=== PATIENT | male | born 1955 | race Two or more races ===

== ENCOUNTER 2021-06-07 13:36 | Inpatient (IN) | payer OTHER ==
[2021-06-07] MEDS ORDERED: ONDANSETRON *ODT* 4 MG TABLET SL PRN (15:35)
[2021-06-07] MEDS ORDERED: MAGNESIUM CITRATE 300 ML BOTTLE PO PRN (15:35)
[2021-06-07] MEDS ORDERED: MAG HYDROX/AL HYDROX/SIMETH 30 ML UNIT-DOSE CUP PO PRN (15:35)
[2021-06-07] MEDS ORDERED: ACETAMINOPHEN 325 MG TABLET (FP) PO PRN (15:35)
[2021-06-07] MEDS ORDERED: BISMUTH SUBSALICYLATE 524 MG/30 ML PO PRN (15:35)
[2021-06-07] MEDS ORDERED: chlordiazePOXIDE HCL 25 MG CAPSULE PO PRN (15:35)
[2021-06-07] MEDS ORDERED: MAGNESIUM HYDROX 2400MG/30ML ORAL SUSPENSION 30 ML CUP PO PRN (15:35)
[2021-06-07] MEDS ORDERED: MENTHOL/PHENOL 1 EACH UD MM PRN (15:35)
[2021-06-07 15:49] VITALS: BMI 27.8
[2021-06-07] MEDS: hydrOXYzine PAMOATE 25 MG CAPSULE (FP) PO SCH ×2 (17:45→22:22)
[2021-06-07] MEDS: chlordiazePOXIDE HCL 25 MG CAPSULE PO SCH ×2 (17:45→22:22)
[2021-06-07] MEDS: THIAMINE HCL 100 MG TABLET (FP) PO SCH (22:22)
[2021-06-07] MEDS: MELATONIN 5 MG TABLETS PO SCH (22:23)
[2021-06-07] MEDS: IBUPROFEN 400 MG TABLET (FP) PO PRN (22:25)
[2021-06-08] MEDS: chlordiazePOXIDE HCL 25 MG CAPSULE PO SCH ×4 (05:42→22:21)
[2021-06-08] MEDS: hydrOXYzine PAMOATE 25 MG CAPSULE (FP) PO SCH ×5 (05:43→22:22)
[2021-06-08] MEDS: IBUPROFEN 400 MG TABLET (FP) PO PRN ×2 (06:28→16:42)
[2021-06-08] MEDS ORDERED: methaDONE HCL 40 MG DISPERSABLE TABLET ONE (09:00)
[2021-06-08] MEDS ORDERED: methaDONE HCL 10 MG TABLET ONE (09:00)
[2021-06-08] MEDS: NICOTINE 10 MG CARTRIDGE (INHALER) IH PRN (09:07)
[2021-06-08] MEDS ORDERED: methaDONE HCL 10 MG TABLET PO ONE (10:00)
[2021-06-08] MEDS: LISINOPRIL 20 MG TABLET PO SCH (10:37)
[2021-06-08] MEDS: PRENATAL VITAMINS W/ FOLIC ACID TABLET (FP) PO SCH (10:37)
[2021-06-08] MEDS: METHOCARBAMOL 500 MG TABLET PO PRN ×2 (10:42→17:45)
[2021-06-08] MEDS: ACETAMINOPHEN 325 MG TABLET (FP) PO PRN (10:42)
[2021-06-08] MEDS: THIAMINE HCL 100 MG TABLET (FP) PO SCH (22:21)
[2021-06-08] MEDS: MELATONIN 5 MG TABLETS PO SCH (22:22)
[2021-06-09] MEDS: METHOCARBAMOL 500 MG TABLET PO PRN ×2 (01:52→18:59)
[2021-06-09] MEDS: IBUPROFEN 400 MG TABLET (FP) PO PRN ×2 (01:53→18:59)
[2021-06-09] MEDS ORDERED: methaDONE HCL 10 MG TABLET ONE (04:06)
[2021-06-09] MEDS ORDERED: methaDONE HCL 40 MG DISPERSABLE TABLET ONE (04:07)
[2021-06-09] MEDS: hydrOXYzine PAMOATE 25 MG CAPSULE (FP) PO SCH ×5 (05:12→22:57)
[2021-06-09] MEDS: chlordiazePOXIDE HCL 25 MG CAPSULE PO SCH ×4 (05:13→22:57)
[2021-06-09] MEDS ORDERED: methaDONE HCL 10 MG TABLET PO SCH (06:00)
[2021-06-09] MEDS: NICOTINE 10 MG CARTRIDGE (INHALER) IH PRN (07:04)
[2021-06-09] MEDS: PRENATAL VITAMINS W/ FOLIC ACID TABLET (FP) PO SCH (10:30)
[2021-06-09] MEDS: LISINOPRIL 20 MG TABLET PO SCH (10:30)
[2021-06-09 10:46] LABS: CALCIUM 8.9 mg/dL (8.5-10.1)
[2021-06-09 10:49] LABS: HEMATOCRIT 37.2 % (35.4-49); HEMOGLOBIN 12.1 GM/dL (11.7-16.9); MCH 30.1 pg (25.7-33.7); MCHC 32.6 g/dl (32.0-35.9); MEAN CELL VOLUME 92.3 fl (80-96); MEAN PLT VOLUME 9.5 fl (7.5-11.1); PLATELET COUNT 134 10^3/uL (134-434); RBC 4.03 M/mm3 (4.00-5.60); RDW 13.7 % (11.9-15.9); WHITE BLOOD COUNT 5.3 K/mm3 (4.0-10.0)
[2021-06-09 10:50] LABS: CREATININE 0.8 mg/dL (0.55-1.3)
[2021-06-09 10:55] LABS: BILIRUBIN,TOTAL 0.3 mg/dL (0.2-1)
[2021-06-09] MEDS: THIAMINE HCL 100 MG TABLET (FP) PO SCH (22:57)
[2021-06-10] MEDS ORDERED: chlordiazePOXIDE HCL 10 MG CAPSULE PO PRN
[2021-06-10] MEDS: MELATONIN 5 MG TABLETS PO SCH ×2 (01:01→23:25)
[2021-06-10] MEDS ORDERED: methaDONE HCL 40 MG DISPERSABLE TABLET ONE (04:38)
[2021-06-10] MEDS ORDERED: methaDONE HCL 10 MG TABLET ONE (04:38)
[2021-06-10] MEDS: hydrOXYzine PAMOATE 25 MG CAPSULE (FP) PO SCH ×5 (05:27→21:40)
[2021-06-10] MEDS: chlordiazePOXIDE HCL 10 MG CAPSULE PO SCH ×4 (05:28→22:00)
[2021-06-10] MEDS: METHOCARBAMOL 500 MG TABLET PO PRN ×3 (05:31→21:39)
[2021-06-10] MEDS: IBUPROFEN 400 MG TABLET (FP) PO PRN ×3 (05:31→21:38)
[2021-06-10] MEDS: PRENATAL VITAMINS W/ FOLIC ACID TABLET (FP) PO SCH (10:36)
[2021-06-10] MEDS: LISINOPRIL 20 MG TABLET PO SCH (10:36)
[2021-06-10] MEDS: ACETAMINOPHEN 325 MG TABLET (FP) PO PRN (10:38)
[2021-06-10] MEDS: THIAMINE HCL 100 MG TABLET (FP) PO SCH (23:26)
[2021-06-11] MEDS ORDERED: methaDONE HCL 40 MG DISPERSABLE TABLET ONE (05:34)
[2021-06-11] MEDS: hydrOXYzine PAMOATE 25 MG CAPSULE (FP) PO SCH ×5 (05:34→21:58)
[2021-06-11] MEDS ORDERED: methaDONE HCL 10 MG TABLET ONE (05:34)
[2021-06-11] MEDS: chlordiazePOXIDE HCL 10 MG CAPSULE PO SCH ×2 (05:35→18:12)
[2021-06-11] MEDS: IBUPROFEN 400 MG TABLET (FP) PO PRN ×2 (05:38→21:58)
[2021-06-11] MEDS: PRENATAL VITAMINS W/ FOLIC ACID TABLET (FP) PO SCH (10:57)
[2021-06-11] MEDS: METHOCARBAMOL 500 MG TABLET PO PRN ×2 (10:57→21:58)
[2021-06-11] MEDS: ACETAMINOPHEN 325 MG TABLET (FP) PO PRN (10:58)
[2021-06-11] MEDS: LISINOPRIL 20 MG TABLET PO SCH (12:53)
[2021-06-11] MEDS: MELATONIN 5 MG TABLETS PO SCH (21:59)
[2021-06-11] MEDS: THIAMINE HCL 100 MG TABLET (FP) PO SCH (21:59)
[2021-06-12] MEDS: ACETAMINOPHEN 325 MG TABLET (FP) PO PRN (02:45)
[2021-06-12] MEDS ORDERED: methaDONE HCL 10 MG TABLET ONE (04:12)
[2021-06-12] MEDS ORDERED: methaDONE HCL 40 MG DISPERSABLE TABLET ONE (04:13)
[2021-06-12] MEDS ORDERED: chlordiazePOXIDE HCL 10 MG CAPSULE PO ONE (05:00)
[2021-06-12] MEDS: hydrOXYzine PAMOATE 25 MG CAPSULE (FP) PO SCH ×2 (05:30→10:55)
[2021-06-12] MEDS: NICOTINE 10 MG CARTRIDGE (INHALER) IH PRN (05:33)
[2021-06-12 07:17] VITALS: TEMP 97.7
[2021-06-12 09:23] VITALS: BP 99/63; PULSE 82
[2021-06-12] MEDS: PRENATAL VITAMINS W/ FOLIC ACID TABLET (FP) PO SCH (10:55)
[2021-06-12] MEDS: LISINOPRIL 20 MG TABLET PO SCH (10:55)
== END 2021-06-12 10:40 | disposition home or self-care (01) | DRG 773 ==
LOC: YASAS 13:36 → Y6N 16:27
PROVIDERS: ADMIT Allergy & Immunology; ATTEND Allergy & Immunology
PROC: HZ2ZZZZ Detoxification Services for Substance Abuse Treatment (ICD-10-PCS; principal; 2021-06-07)
DX: F10.230 Alcohol dependence with withdrawal, uncomplicated (principal); F11.20 Opioid dependence, uncomplicated; F17.210 Nicotine dependence, cigarettes, uncomplicated; F41.9 Anxiety disorder, unspecified; F32.A Depression, unspecified; I10 Essential (primary) hypertension; R79.89 Other specified abnormal findings of blood chemistry; Z86.69 Personal history of other diseases of the nervous system and sense organs; Z86.19 Personal history of other infectious and parasitic diseases; Z86.59 Personal history of other mental and behavioral disorders
CPT/HCPCS: 36415; 71045-TC-FY; 80053; 85027; 86780; 93005; 93010; C9803; U0003; U0005